=== PATIENT | female | born 1995 | race Caucasian/White ===

== ENCOUNTER → 2019-08-28 02:20 | Observation (INO) ==
[~2019-08-28 02:20] MED LIST: FLU Vac QV 19-20 (6Month+)/PF 0.5 ML SYRINGE IM ONE
[2019-08-28 02:50] LABS: Candida DNA Not Detected (Not Detect); Gardnerella DNA Not Detected (Not Detect); Trichomonas DNA Not Detected (Not Detect)
== END | disposition home or self-care (01) ==
LOC: 1NENULAB
PROVIDERS: ADMIT Registered Nurse; ATTEND Registered Nurse

== ENCOUNTER → 2019-09-03 00:25 | Observation (INO) ==
[~2019-09-03 00:25] MED LIST changes: +Acetaminophen 325 MG TABLET PO ONE; -FLU Vac QV 19-20 (6Month+)/PF 0.5 ML SYRINGE IM ONE
[2019-09-03 00:40] LABS: Bilirubin,Urine Negative (Negative); Blood,Urine Negative (Negative); Clarity,Urine Cloudy (Clear); Color,Urine Yellow (Yellow); Glucose,Urine (UA) Normal (Normal); Ketones,Urine Negative (Negative); Leukocyte Esterase,Urine Trace (Negative); Nitrite,Urine Negative (Negative); PH,Urine 6.5 pH Units (5.0-8.0); Protein,Urine Negative (Neg-Trace); Specific Gravity,Urine 1.012 (1.010-1.025); Urobilinogen,Urine Normal (Normal)
[2019-09-03 00:43] LABS: Bacteria,Urine Many per hpf (None-Few); Hyaline Casts,Urine None Seen per lpf (None-Few); RBC,Urine 0-3 per hpf (0-3); Squamous Epithelial Cell,Urine Many per lpf (None-Few); WBC,Urine 30-50 per hpf (0-3)
[2019-09-03 01:23] LABS: Amphetamine Screen,Urine Negative ng/mL (Cutoff=1000); Barbiturate Screen,Urine Negative ng/mL (Cutoff=200); Benzodiazepines Screen,Urine Negative ng/mL (Cutoff=200); Cannabinoid Screen,Urine Negative ng/mL (Cutoff = 50); Cocaine Screen,Urine Negative ng/mL (Cutoff= 300); Opiate Screen,Urine Negative ng/mL (Cutoff=300); Phencyclidine Screen,Urine Negative ng/mL (Cutoff=25)
== END | disposition home or self-care (01) ==
LOC: 1NENULAB
PROVIDERS: ADMIT Advanced Practice Midwife; ATTEND Advanced Practice Midwife

== ENCOUNTER 2019-09-09 05:16 | Inpatient (IN) ==
[2019-09-09] MEDS ORDERED: Famotidine 20 MG/2 ML VIAL IVP ONE (05:45)
[2019-09-09] MEDS ORDERED: Metoclopramide 10 MG/2 ML VIAL IVP ONE (05:45)
[2019-09-09] MEDS ORDERED: Ringers Solution, Lactated 1,000 ML IVC ONE (05:45)
[2019-09-09] MEDS ORDERED: Ringers Solution, Lactated 1,000 ML ONE ×3 (05:48→07:16)
[2019-09-09 06:07] LABS: Basophils # 0.1 K/mcL (0.0-0.2); Basophils % 0.5 %; Eosinophils # 0.2 K/mcL (0.0-0.6); Eosinophils % 2.1 %; Hematocrit 33.8 % (35.3-44.9); Hemoglobin 11.6 g/dL (11.5-15.4); Immature Granulocytes % 0.8 % (0-4); Lymphocytes # 2.4 K/mcL (0.6-4.6); Lymphocytes % 24.1 %; Mean Corpuscular HGB Conc 34.3 g/dL (31.6-35.5); Mean Corpuscular Hemoglobin 32.1 pg (28.0-33.3); Mean Corpuscular Volume 93.6 fL (83.0-100.0); Mean Platelet Volume 11.7 fL (9.4-12.4); Monocytes # 0.7 K/mcL (0.0-1.3); Monocytes % 7.4 %; Neutrophils # 6.4 K/mcL (1.6-8.9); Platelet Count 158 K/mcL (140-400); Red Blood Count 3.61 M/mcL (3.82-4.97); Red Cell Distribution Width 13.2 % (11.5-14.5); Segmented Neutrophils % 65.1 %; White Blood Count 9.8 K/mcL (4.3-11.1)
[2019-09-09 06:32] LABS: Amphetamine Screen,Urine Negative ng/mL (Cutoff=1000); Barbiturate Screen,Urine Negative ng/mL (Cutoff=200)
[2019-09-09 06:33] LABS: Benzodiazepines Screen,Urine Negative ng/mL (Cutoff=300); Cannabinoid Screen,Urine Negative ng/mL (Cutoff = 50); Cocaine Screen,Urine Negative ng/mL (Cutoff= 300); Opiate Screen,Urine Negative ng/mL (Cutoff=300); Phencyclidine Screen,Urine Negative ng/mL (Cutoff=25)
[2019-09-09] MEDS ORDERED: Ondansetron 4 MG/2 ML VIAL IVP PRN ×2 (06:46→12:26)
[2019-09-09] MEDS ORDERED: *HR* OxyCODONE/APAP 5/325 TABLET PO PRN (06:46)
[2019-09-09] MEDS ORDERED: Ibuprofen 400 MG TABLET PO PRN (06:46)
[2019-09-09] MEDS ORDERED: Acetaminophen IV 1,000 MG/100 ML INFUS..BTL IVPB ONE (06:47)
[2019-09-09] MEDS ORDERED: CeFAZolin Premix DUPLEX 2,000 MG/50 ML BAG IVPB ONE (07:13)
[2019-09-09] MEDS ORDERED: EPHEDrine 50 MG/ML VIAL ONE (07:16)
[2019-09-09] MEDS ORDERED: *HR* Morphine Sulfate/PF 10 MG/10 ML AMPUL ONE (07:16)
[2019-09-09] MEDS ORDERED: *HR* FentaNYL (PF) 100 MCG/2 ML VIAL ONE (07:16)
[2019-09-09] MEDS ORDERED: Ondansetron 4 MG/2 ML VIAL ONE (07:18)
[2019-09-09] MEDS ORDERED: *HR* Oxytocin 10 UNIT/ML VIAL IM ONE (07:18)
[2019-09-09] MEDS ORDERED: *HR* Phenylephrine 10 MG/ML VIAL ONE (07:18)
[2019-09-09] MEDS ORDERED: Dexamethasone 4 MG/ML VIAL ONE (07:18)
[2019-09-09] MEDS ORDERED: *HR* Midazolam HCl 2 MG/2 ML VIAL ONE (07:23)
[2019-09-09] MEDS ORDERED: Ketorolac 30 MG/ML VIAL ONE (08:18)
[2019-09-09] MEDS ORDERED: Oxytocin 20 units/ LR 1000 mL 20 UNIT/1,000 ML BAG IVC ONE ×2 (08:57→11:05)
[2019-09-09] MEDS ORDERED: Simethicone 80 MG TAB.CHEW PO PRN (12:26)
[2019-09-09] MEDS ORDERED: Metoclopramide 10 MG/2 ML VIAL IVP PRN (12:26)
[2019-09-09] MEDS ORDERED: Sennosides 8.6 MG TABLET PO PRN (12:26)
[2019-09-09] MEDS ORDERED: Oxytocin 20 units/ LR 1000 mL 20 UNIT/1,000 ML BAG IVC SCH (12:26)
[2019-09-09] MEDS: Prenatal Vit/FA 1 EACH TABLET PO SCH (13:00)
[2019-09-09] MEDS: Ibuprofen 600 MG TABLET PO PRN ×2 (18:00→23:56)
[2019-09-10 07:55] LABS: Basophils % 0.3 %; Eosinophils # 0.1 K/mcL (0.0-0.6); Eosinophils % 0.5 %; Hematocrit 19.5 % (35.3-44.9); Immature Granulocytes % 0.5 % (0-4); Lymphocytes % 17.8 %; Mean Corpuscular HGB Conc 33.8 g/dL (31.6-35.5); Mean Corpuscular Volume 97.5 fL (83.0-100.0); Mean Platelet Volume 10.7 fL (9.4-12.4); Platelet Count 117 K/mcL (140-400); Red Cell Distribution Width 13.2 % (11.5-14.5); Segmented Neutrophils % 71.9 %; White Blood Count 11.1 K/mcL (4.3-11.1)
[2019-09-10 07:58] LABS: Hemoglobin 6.6 g/dL (11.5-15.4)
[2019-09-10] MEDS: Prenatal Vit/FA 1 EACH TABLET PO SCH (09:07)
[2019-09-10] MEDS: Ibuprofen 600 MG TABLET PO PRN ×2 (09:07→18:03)
[2019-09-10] MEDS ORDERED: 0.9 % Sodium Chloride 250 ML ONE (12:45)
[2019-09-10] MEDS: *HR* OxyCODONE/APAP 5/325 TABLET PO PRN (19:58)
[2019-09-11] MEDS: Ibuprofen 600 MG TABLET PO PRN ×2 (00:31→05:57)
[2019-09-11 07:59] LABS: Basophils % 0.5 %; Eosinophils # 0.2 K/mcL (0.0-0.6); Eosinophils % 2.4 %; Hematocrit 24.7 % (35.3-44.9); Immature Granulocytes % 1.5 % (0-4); Lymphocytes # 2.1 K/mcL (0.6-4.6); Mean Corpuscular HGB Conc 34.8 g/dL (31.6-35.5); Mean Corpuscular Hemoglobin 32.2 pg (28.0-33.3); Mean Corpuscular Volume 92.5 fL (83.0-100.0); Mean Platelet Volume 10.9 fL (9.4-12.4); Monocytes # 0.6 K/mcL (0.0-1.3); Monocytes % 7.3 %; Neutrophils # 5.4 K/mcL (1.6-8.9); Platelet Count 138 K/mcL (140-400); Red Blood Count 2.67 M/mcL (3.82-4.97); Red Cell Distribution Width 14.9 % (11.5-14.5); Segmented Neutrophils % 63.3 %; White Blood Count 8.5 K/mcL (4.3-11.1)
[2019-09-11 08:01] LABS: Hemoglobin 8.6 g/dL (11.5-15.4)
[2019-09-11 08:31] VITALS: BP 118/78
[2019-09-11] MEDS: Prenatal Vit/FA 1 EACH TABLET PO SCH (09:21)
[2019-09-11] MEDS: *HR* OxyCODONE/APAP 5/325 TABLET PO PRN (10:45)
== END 2019-09-11 13:00 | disposition home or self-care (01) | DRG 540 ==
LOC: 1NENULAB 05:16 → 1NENUOBS 11:10
PROVIDERS: ADMIT Obstetrics & Gynecology; ATTEND Obstetrics & Gynecology